=== PATIENT | female | born 1990 | race Caucasian/White ===

== ENCOUNTER 2022-10-10 08:35 | Day surgery (SDC) | payer BC ==
[~2022-10-10] VITALS: Ht 177.8 cm; Wt 104.2 kg
[~2022-10-10 08:35] MED LIST: ACET250 PO; BCP'S; CIPR250 PO; DOXY100 PO; FERR325 PO; FLUO20 PO; HYDACE5 PO; IBUP600 PO; IBUP800 PO; KETO10 PO; LEVFLO500 PO; MANY VITAMINS; MULVITMINE PO; Mirena1 EACH VG; NAPR500 PO; ONDA4 PO; ONDA4ODT MM; OXYACE5T PO; PHENA200 PO; PRED10 PO; PROM25 PO; Prednisone20 MG PO; RXALBOI INH; RXOXYACE PO; Robaxin-750750 MG PO; SERT50 PO; SULTRIDS PO; Ultram50 MG PO
[2022-10-10] MEDS ORDERED: QUET100 (08:59)
[2022-10-23 12:21] LABS: Performing Lab SYMBIODX; Test Name TISSUE BIOPSY
== END 2022-10-10 10:16 | disposition home or self-care (01) ==
LOC: ORSCSDS 08:35
PROVIDERS: Pathology Clinical Pathology/Laboratory Medicine; Student in an Organized Health Care Education/Training Program
PROC: 0DB98ZX Excision of Duodenum, Via Natural or Artificial Opening Endoscopic, Diagnostic (ICD-10-PCS; principal; 2022-10-10 09:45)
PROC: 0DB78ZX Excision of Stomach, Pylorus, Via Natural or Artificial Opening Endoscopic, Diagnostic (ICD-10-PCS; principal; 2022-10-10 09:45)
DX: K90.0 Celiac disease (principal); K21.9 Gastro-esophageal reflux disease without esophagitis; B96.81 Helicobacter pylori [H. pylori] as the cause of diseases classified elsewhere; K29.70 Gastritis, unspecified, without bleeding; Z87.891 Personal history of nicotine dependence; F41.8 Other specified anxiety disorders; Z79.899 Other long term (current) drug therapy
CPT/HCPCS: 88305; 88342; J2250; J2704; J7120

== ENCOUNTER → 2024-10-01 | Outpatient (CLI) | payer BC ==
[~2024-10-01] MED LIST changes: +BISM300CH; +CHOLESTYRAMI239.4 G1; +METR250; +QUET100
== END ==
LOC: LAB SHORT 19:35 → LAB 19:35
DX: N30.00 Acute cystitis without hematuria (principal)
CPT/HCPCS: 87086